=== PATIENT | female | born 1990 | race American Indian/Alaskan Native ===

== ENCOUNTER 2016-11-29 05:58 | Day surgery (SDC) | payer MEDICAID ==
[2016-11-29] MEDS ORDERED: NACL BACTERIOSTATIC INFILTRATI ONE (06:41)
[2016-11-29] MEDS ORDERED: NACL 0.9% 1000 ML 1,000 ML ONE (07:00)
[2016-11-29] MEDS ORDERED: ANCEF/STERILE WATER 2 GM/20 ML IV NR (07:10)
[2016-11-29] MEDS ORDERED: HEPARIN 10,000 UNITS/10 ML ONE (07:18)
[2016-11-29] MEDS ORDERED: MARCAINE 0.25% INFILTRATI ONE (07:18)
[2016-11-29] MEDS ORDERED: XYLOCAINE 1% 20 mL ONE (07:19)
[2016-11-29] MEDS ORDERED: NACL 0.9% 100 ML ONE (07:20)
[2016-11-29] MEDS ORDERED: VERSED ONE (07:28)
[2016-11-29] MEDS ORDERED: XYLOCAINE 1% 20 mL INFILTRATI ONE ×2 (07:30)
[2016-11-29] MEDS ORDERED: HEPARIN 10,000 UNITS/10 ML IV ONE (07:30)
[2016-11-29] MEDS ORDERED: NACL 0.9% IR ONE (07:30)
[2016-11-29] MEDS ORDERED: NACL 0.9% IV ONE (07:30)
[2016-11-29] MEDS ORDERED: DIPRIVAN 10 MG/ML IV ONE ×2 (07:35→07:44)
[2016-11-29] MEDS ORDERED: SUBLIMAZE ONE (07:35)
[2016-11-29] MEDS ORDERED: XYLOCAINE MPF 2% ONE (07:36)
[2016-11-29] MEDS ORDERED: NACL 0.9% 1000 ML 1,000 ML IV SCH (08:00)
[2016-11-29] MEDS ORDERED: ZOFRAN ONE (08:15)
--- NOTE | 2016-11-29 09:05 | Fluoroscopy Report ---
Portable chest: Line placement. A right subclavian port has been introduced with the tip overlying the superior third of the SVC. The mediastinal contour is unremarkable. The lungs are clear and fully expanded. No prior exam for comparison. Impression: No complication identified.
--- NOTE | 2016-11-29 09:23 | Short Stay Summary ---
Short Stay Documentation Date of service: 11/29/16 - History H&P: obtained from office - Allergies and Medications Current Medications: Allergies No Known Allergies Allergy (Verified 11/24/16 14:34) Home Medications Medication Instructions Recorded Confirmed Last Taken Type HYDROcodone/APAP 5-325 [[place] 1 each PO Q6HR PRN #30 tablet 11/29/16 Unknown Rx 5/325] Active Medications Cefazolin Sodium (Ancef/Sterile Water 2 Gm/20 Ml) 2 gm IV PREOP NR Stop: 11/29/16 23:59 Sodium Chloride (Nacl 0.9% 1000 Ml) 1,000 mls @ 75 mls/hr IV DIRECT CHARLETTE - Brief post op/procedure progress note Date of procedure: 11/29/16 Pre-op diagnosis: 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 Post-op diagnosis: same Procedure: Right port placement under fluorosocopy guidance Anesthesia: MAC Findings: Right port placement in good condition Surgeon: JEREMY LASSITER Kiln Packer: LACI MCQUEEN Estimated blood loss: minimal Pathology: none Condition: stable - Disposition Condition at discharge: Good Disposition: DC-01 TO HOME OR SELFCARE Short Stay Discharge Plan Activity: other (no heavy lifting) Diet: regular Wound: other (keep incision clean and dry and may shower in 24 hours; no baths, pools or lakes) Follow up with: JEREMY LASSITER MD [Staff Physician] - 7 Days Forms: Outpatient Surgery DC Inst. Prescriptions: HYDROcodone/APAP 5-325 [[place] 5/325] 1 each PO Q6HR PRN #30 tablet PRN Reason: Pain
--- NOTE | 2016-11-29 09:28 | Anesthesia Consultation ---
Anesthesia Consult and Med Hx Date of service: 11/29/16 - Airway Anesthetic Teeth Evaluation: Good ROM Head & Neck: Adequate Mental/Hyoid Distance: Adequate Mallampati Class: Class I Intubation Access Assessment: Good - Pulmonary Exam CTA: Yes - Cardiac Exam Cardiac Exam: RRR - Pre-Operative Health Status ASA Pre-Surgery Classification: ASA2 Proposed Anesthetic Plan: General - Cardiovascular System Hx Heart Murmur: Yes (as a child) - Central Nervous System Hx Psychiatric Problems: No - Other Systems Hx Alcohol Use: No Hx Substance Use: No Hx Cancer: Yes
--- NOTE | 2016-11-29 09:28 | Operative Report ---
Operative Report Operative Report: Date of Service: November 29, 2016 Preoperative diagnosis: 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s in need of central venous access Postoperative diagnosis: Same Procedure: Right port placement under fluoroscopy guidance Surgeon: Janie Freeman M.D. Asst.: Dr. Avendaño Anesthesia: Local Mac Findings: Right port placement in good position with placement confirmed under fluoroscopy guidance Complications: None Estimated blood loss: Minimal Disposition: PACU in good condition Indications for operative procedure: This is a 67-year-old lady with multicentric left breast cancer of he upper outer and upper inner quadrants. Recommendations are to proceed with neoadjuvant chemotherapy. Patient in need of central venous access to start chemotherapy. Procedure in detail: The patient was taken to the operating room and was laid supine. Local Mac anesthesia was administered. Bilateral neck and chest were prepped and draped in the normal sterile operative fashion. Timeout was performed. Sternal notch including right pectoral groove was identified. The area for central venous access was anesthetized with 1% lidocaine. The right sublcavian vein was accessed with the syringe and needle attached and good backflow of blood was noted. Wire was introduced through the needle. Placement of wire was confirmed under fluoroscopy guidance. A skin incision was then made at wire insertion site with a 15 blade knife after the skin was appropriately anesthetized. Bovie cautery was used to create the pocket for port placement. Dilator and sheath were then threaded through the wire in Seldinger technique. The wire and dilator were then removed. The catheter was then inserted through the sheath without incident. The catheter was tested with good backflow of blood and placement confirmed under flouroscopy. The sheath was then peeled back. The catheter was cut to size. The catheter was then attached to the port. The port was placed in the appropriate pocket that was created. The port was tested with good backflow of blood noted. Fluoroscopy was performed with port in good placement and no concerns for a pneumothorax. The port was sutured into place. The port was flushed with heparin. The skin incision was then approximated and closed using interrupted 3-0 Vicryl and then closed using a running 4-0 Monocryl and skin affix. Upright chest x-ray performed in operating room with port in good placement and no signs of pneumothorax. She tolerated surgery very well and was awakened from anesthesia and transported to PACU in good condition.
--- NOTE | 2016-11-29 09:28 | Anesthesia Day of Surgery ---
Anesthesia Day of Surgery - Day of Surgery Patient Examined: Yes Patient H&P Reviewed: Yes Patient is NPO: Yes
--- NOTE | 2016-11-29 09:29 | Post Anesthesia Evaluation ---
- Post Anesthesia Evaluation Patient Participated: Yes Airway Patent: Yes Stable Respiratory Function: Yes Temp > 96.8F: Yes Pain Manageable: Yes Adequeate Hydration: Yes Anesthesia Complications: No
[2016-11-29 11:30] VITALS: BP 124/71
== END 2016-11-29 10:25 | disposition home or self-care (01) ==
LOC: OR 05:58
PROVIDERS: ATTEND Surgery
DX: C50.212 Malignant neoplasm of upper-inner quadrant of left female breast (principal); C50.412 Malignant neoplasm of upper-outer quadrant of left female breast; Z80.3 Family history of malignant neoplasm of breast
CPT/HCPCS: 36556; 77001; 81025; C1788; J0690; J1644; J2250; J2405; J2704; J3010; J7030

== ENCOUNTER 2017-01-01 09:15 | Outpatient (CLI) | payer MEDICAID ==
[2017-01-01 10:14] LABS: Blood Urea Nitrogen 14 mg/dL (7-17)
[2017-01-01] MEDS ORDERED: NACL ONE (10:45)
--- NOTE | 2017-01-01 12:15 | Cat Scan Report ---
CT chest, abdomen, and pelvis with contrast: Breast cancer sided not indicated. Following IV and oral administration of contrast transverse images are obtained from the thoracic inlet to the ischium with coronal and sagittal 2-D reformatted images. There is a right port. The thyroid gland is unremarkable. The breasts are symmetric with no lesion identified. There is no obvious axillary adenopathy. No jenn and no mediastinal adenopathy identified. The central airways are patent. No pulmonary nodules, infiltrates, or pleural change is identified. The abdominal and retroperitoneal organs appear normal. No periaortic or mesenteric adenopathy noted. The opacified small bowel and non-opacified colon appear generally unremarkable. The appendix is not identified at present but no inflammatory changes noted. No free fluid. Images of the pelvis demonstrate the reproductive organs with a 2.9 cm right ovarian cyst. No bone lesions identified. Impressions: No evidence of metastatic disease.
--- NOTE | 2017-01-01 15:41 | Nuclear Medicine Report ---
BONE SCAN: Breast cancer. After injection of isotope, gamma camera imaging of the bony system was done. There is a normal uptake of isotope throughout the bony structures without areas of significantly increased or decreased uptake. Normal uptake in the urinary system is seen. IMPRESSION: Normal bone scan.
== END 2017-01-01 09:16 | disposition home or self-care (01) ==
LOC: NM 09:15
PROVIDERS: ATTEND Internal Medicine Hematology & Oncology
DX: C50.212 Malignant neoplasm of upper-inner quadrant of left female breast (principal); N83.201 Unspecified ovarian cyst, right side
CPT/HCPCS: 36415; 71260; 74177; 78306; 82565; 84520; A9503; Q9967

== ENCOUNTER 2017-03-20 09:22 | Outpatient (CLI) | payer MEDICAID ==
--- NOTE | 2017-03-20 16:50 | Mammography Report ---
LEFT DIGITAL DIAGNOSTIC MAMMOGRAM with CAD: 03/20/17 09:22:00 CLINICAL: Known left breast cancer near completion of chemotherapy. COMPARISON:10/31/16 FINDINGS: The breast is extremely dense, which limits the sensitivity of mammography. Malignant upper inner calcifications are not significantly changed compared to prior exam.However, an ill-defined inner mass is no longer identified at a biopsy clip. IMPRESSION: At least a partial response to chemotherapy. BI-RADS CATEGORY: 6--Known Cancer ACR BI-RADS MAMMOGRAPHIC CODES: 0 = Needs additional imaging evaluation; 1 = Negative; 2 = Benign; 3 = Probably benign; 4 = Suspicious; 5 = Malignant; 6 = Known biopsy-proven malignancy COMMENT: 1. Dense breast tissue, i.e., adenosis, fibrocystic changes, etc., may obscure an underlying neoplasm. 2. Approximately 10% of cancers are not detected with mammography. 3. A negative mammography report should not delay biopsy if a clinically suspicious mass is present. COMMENT: Patient follow-up letters are generated by our [employer] application.
== END 2017-03-20 09:23 | disposition home or self-care (01) ==
LOC: SPVIMAG 09:22
PROVIDERS: ATTEND Surgery
DX: C50.912 Malignant neoplasm of unspecified site of left female breast (principal)

== ENCOUNTER 2017-04-25 05:54 | Observation (INO) | payer MEDICAID ==
--- NOTE | 2017-04-24 12:27 | Anesthesia Consultation ---
Anesthesia Consult and Med Hx Date of service: 04/24/17 - Airway Anesthetic Teeth Evaluation: Good ROM Head & Neck: Adequate Mental/Hyoid Distance: Adequate Mallampati Class: Class I Intubation Access Assessment: Possibly Difficult (Pt has hx of subglottic stenosis with previous cricoid split. Hoarse from surgery. Denies GERD. Will be safe for GA with LMA.) - Pulmonary Exam CTA: Yes - Cardiac Exam Cardiac Exam: RRR - Pre-Operative Health Status ASA Pre-Surgery Classification: ASA2 Proposed Anesthetic Plan: General - Cardiovascular System Hx Heart Murmur: Yes (as a child) - Other Systems Hx Cancer: Yes (Breast Cancer)
[2017-04-25] MEDS ORDERED: NACL BACTERIOSTATIC INFILTRATI ONE (06:46)
[2017-04-25] MEDS ORDERED: PEPCID IV NR (07:00)
[2017-04-25] MEDS ORDERED: LACTATED RINGERS 1,000 ML IV SCH ×2 (07:00→12:00)
[2017-04-25] MEDS ORDERED: VERSED IV NR (07:00)
[2017-04-25] MEDS ORDERED: SUBLIMAZE IV ONE (07:15)
[2017-04-25] MEDS ORDERED: XYLOCAINE 1% 20 mL INFILTRATI NR (07:15)
[2017-04-25] MEDS ORDERED: MARCAINE 0.5% 30 ML INFILTRATI ONE (07:29)
[2017-04-25] MEDS ORDERED: DIPRIVAN 10 MG/ML IV ONE (07:31)
[2017-04-25] MEDS ORDERED: SUBLIMAZE ONE (07:34)
[2017-04-25] MEDS ORDERED: XYLOCAINE MPF 2% ONE (07:38)
[2017-04-25] MEDS ORDERED: ZEMURON IV ONE (07:38)
[2017-04-25] MEDS ORDERED: DILAUDID ONE (07:47)
[2017-04-25] MEDS ORDERED: XYLOCAINE 2% INFILTRATI ONE (07:58)
[2017-04-25] MEDS ORDERED: DECADRON IV NR (08:00)
[2017-04-25] MEDS ORDERED: SUBLIMAZE IV NR (08:00)
[2017-04-25] MEDS ORDERED: MARCAINE 0.5% INFILTRATI NR (08:00)
[2017-04-25] MEDS ORDERED: NEURONTIN PO NR (08:00)
[2017-04-25] MEDS ORDERED: XYLOCAINE 1% MPF 5 mL ONE (08:01)
[2017-04-25] MEDS ORDERED: MARCAINE 0.25% INFILTRATI ONE (08:01)
--- NOTE | 2017-04-25 08:22 | Short Stay Summary ---
Short Stay Documentation Date of service: 04/25/17 - History H&P: obtained from office - Allergies and Medications Current Medications: Allergies No Known Allergies Allergy (Verified 04/24/17 12:18) Home Medications Medication Instructions Recorded Confirmed Last Taken Type HYDROcodone/APAP 5-325 [[employer] 1 each PO Q6HR PRN #30 tablet 11/29/16 04/24/17 Unknown Rx 5/325] Active Medications Bupivacaine HCl (Marcaine 0.5%) 40 ml INFILTRATI PREOP NR Stop: 04/25/17 12:00 Celecoxib (Celebrex) 200 mg PO PREOP NR Stop: 04/25/17 12:00 Dexamethasone (Decadron) 8 mg IV PREOP NR Stop: 04/25/17 12:00 Famotidine (Pepcid) 20 mg IV PREOP NR Stop: 04/25/17 23:59 Gabapentin (Neurontin) 600 mg PO PREOP NR Stop: 04/25/17 12:00 Lactated Ringer's (Lactated Ringers) 1,000 mls @ 100 mls/hr IV DIRECT CHARLETTE Lidocaine (Xylocaine 1% 20 Ml) 10 ml INFILTRATI PREOP NR Stop: 04/25/17 12:00 Midazolam HCl (Versed) 2 mg IV PREOP NR Stop: 04/25/17 23:59 - Brief post op/procedure progress note Date of procedure: 04/25/17 Pre-op diagnosis: Left breast cancer of the upper inner quadrant Post-op diagnosis: same Procedure: Right total mastectomy and left total mastectomy with SLNB Anesthesia: GETA Findings: Right mastectomy; left total mastectomy with SLNBx2 and frozen section negative for malignancy; radiograph specimen with left breast clip present Surgeon: JEREMY LASSITER Jewel Setter: LACI MCQUEEN Estimated blood loss: minimal Pathology: list (bilateral mastectomy; left SLNS) Specimen disposition: to lab Condition: stable - Disposition Condition at discharge: Good Disposition: DC/TX-02 SHRT-TRM GEN HOSP IP Short Stay Discharge Plan Activity: other (no heavy lifting) Diet: regular Wound: other (may shower in 48 hours; no baths, pools or lakes) Follow up with: ELIJAH STUBBS MD [Primary Care Provider] - 7 Days JEREMY LASSITER MD [Staff Physician] - 7 Days
--- NOTE | 2017-04-25 08:26 | Operative Report ---
Operative Report Operative Report: Date of Service: April 25, 2017 Preoperative diagnosis: Multicentric left breast cancer of the upper inner quadrant and overlapping areas, BRCA positive gene mutation Postoperative diagnosis: Same Procedure: Right total mastectomy and left total mastectomy with sentinel lymph node biopsy Surgeon: Janie Freeman M.D. Asst.: Ana Pierce MD Anesthesia: Gen. Findings: Left breast clip present within left total mastectomy radiograph specimen; x2 sentinel lymph nodes identified and negative for malignancy on frozen section of pathology Complications: None Drains: 2 19 Fr Estimated blood loss: Minimal Disposition: PACU in good condition Indications for operative procedure: This is a 27-year-old lady with stage I multicentric left breast cancer of the upper inner quadrant and overlapping areas. Recommendations were to proceed with a bilateral total mastectomy and left axillary lymph node staging given positive BRCA gene mutation and multicentric invasive left breast cancer. She completed neoadjuvant chemotherapy. Patient declined plastic reconstructive surgery. Procedure in detail: Anesthesia placed a bilateral pectoral muscle block prior to going to the operating room. The patient was taken to the operating room and was placed supine. Gen. anesthesia was administered. The left nipple was injected with radioisotope. Bilateral breast were prepped and draped in the normal postoperative fashion. Timeout was performed. Typical mastectomy incision markings were made with left mastectomy marking to include known breast cancer at the 10:00 position-was palpable. Attention was taken towards the right breast first. A skin incision was made with a 10 blade knife and dissection taken down to the subcutaneous tissues. First began raising of the superior flap to the level of the clavicle superiorly and posteriorly to the pectoralis muscle. Followed by raising of the medial flap to the level of the sternum and posteriorly to the pectoralis muscle. Followed by raising of the lateral flap to the level of the latissimus dorsi muscle and taken down posteriorly. Followed by raising of the inferior flap to the level of the inframammary fold taken posterior to the pectoralis muscle. The mastectomy/breast was removed from the pectoralis muscle without incident. The specimen was appropriately marked and sent to pathology. Hemostasis was obtained with the bovie cautery. A 19 [place] EMILY drain was placed. The subcutaneous tissues were approximated and closed using interrupted 3-0 Vicryl. The skin was then closed using a running 4-0 Monocryl followed by skin affix. Attention was taken towards the left breast. A gamma probe was inserted into the axilla to identify the sentinel lymph node location. A skin incision was made with a 10 blade knife and dissection taken down to the subcutaneous tissues. First began raising of the superior flap to the level of the clavicle superiorly and posteriorly to the pectoralis muscle. Followed by raising of the medial flap to the level of the sternum and posteriorly to the pectoralis muscle. Followed by raising of the lateral flap to the level of the latissimus dorsi muscle and taken down posteriorly. The gamma probe was inserted into the axilla and 2 sentinel lymph nodes were identified, all remaining counts were less than 10% of the highest SLN. Lymph nodes were sent to pathology with findings negative for malignancy noted on frozen section. Then proceeded with raising of the inferior flap to the level of the inframammary fold taken posterior to the pectoralis muscle. The mastectomy/breast was removed from the pectoralis muscle without incident. The specimen was appropriately marked and sent to radiology with findings of 1 breast clip present and sent to pathology. Hemostasis was obtained with the bovie cautery. A 19 [place] EMILY drain was placed. The subcutaneous tissues were approximated and closed using interrupted 3-0 Vicryl. The skin was then closed using a running 4-0 Monocryl followed by skin affix. She was awaken from anesthesia without any complications and transported to PACU in good condition.
[2017-04-25] MEDS ORDERED: ANCEF/STERILE WATER 2 GM/20 ML IV NR (08:40)
[2017-04-25] MEDS ORDERED: ePHEDrine SULFATE ONE (08:46)
[2017-04-25] MEDS ORDERED: ZOFRAN ONE (09:25)
[2017-04-25] MEDS ORDERED: DECADRON ONE (09:25)
[2017-04-25] MEDS ORDERED: WATER FOR IRRIG STERILE IR ONE (09:46)
--- NOTE | 2017-04-25 11:12 | Post Anesthesia Evaluation ---
- Post Anesthesia Evaluation Patient Participated: Yes Airway Patent: Yes Stable Respiratory Function: Yes Nausea/Vomiting: No Temp > 96.8F: Yes Pain Manageable: Yes Adequeate Hydration: Yes Anesthesia Complications: No
[2017-04-25] MEDS ORDERED: SODIUM CHLORIDE FLUSH SYRINGE 10 ML IV PRN (11:15)
[2017-04-25] MEDS ORDERED: PERCOCET 5/325 PO PRN (11:15)
[2017-04-25] MEDS ORDERED: ZOFRAN IV PRN (11:15)
[2017-04-25] MEDS ORDERED: REGLAN PO PRN (11:15)
[2017-04-25] MEDS ORDERED: BENADRYL PO PRN (11:15)
[2017-04-25] MEDS ORDERED: TYLENOL PO PRN (11:15)
[2017-04-25] MEDS ORDERED: MORPHINE IV PRN ×2 (11:16→11:59)
[2017-04-25] MEDS ORDERED: MORPHINE ONE (11:41)
--- NOTE | 2017-04-25 15:06 | Mammography Report ---
SPECIMEN RADIOGRAPH LEFT BREAST: 04/25/17 05:54:00 CLINICAL: Left mastectomy specimen FINDINGS: Malignant calcifications are identified within the specimen.
[2017-04-25] MEDS ORDERED: COLACE PO SCH (22:00)
--- NOTE | 2017-04-26 07:52 | Progress Note ---
Assessment and Plan This is a 27 year old lady with Stage I left breast cancer POD#1 uli mastectomy with left SLNB. 1. No acute events overnight. Pain well controlled. 2. Uli chest incisions healing well. 3. EMILY drain education. 4. OOB to hallway. 4. D/C planning for today. Subjective Date of service: 04/26/17 Principal diagnosis: Multicentric left breast cancer of the upper inner quadrant Interval history: This is a 27 year old lady POD#1 bilateral tot mastectomy and left SLNB Objective - Constitutional Vitals: Vital Signs - 12hr 04/25/18 04/26/17 04/26/17 20:10 00:20 05:00 Temperature 97.9 F 97.9 F 98.5 F Pulse Rate 82 85 85 Respiratory 18 18 18 Rate Blood Pressure 114/65 115/63 116/71 [Right] O2 Sat by Pulse 100 99 100 Oximetry General appearance: Present: no acute distress - EENT Eyes: PERRL, EOM intact ENT: hearing intact, clear oral mucosa, dentition normal Ears: bilateral: normal - Neck Neck: supple, normal ROM - Respiratory Respiratory effort: normal Respiratory: bilateral: CTA - Breasts Breasts: other (uli chest inc c/d/i; skin well perfused; EMILY drains to bulb suction; no hematoma) - Cardiovascular Rhythm: regular Extremities: no ischemia, pulses intact, pulses symmetrical, No edema, normal temperature, normal color, Full ROM - Gastrointestinal General gastrointestinal: Present: soft, non-tender, non-distended Rectal Exam: deferred - Genitourinary Female genitourinary: deferred - Integumentary Integumentary: clear, warm, dry - Musculoskeletal Musculoskeletal: strength equal bilaterally - Neurologic Neurologic: CNII-XII intact, moves all extremities - Psychiatric Psychiatric: appropriate mood/affect, intact judgment & insight, memory intact, cooperative
[2017-04-26 10:46] VITALS: BP 117/73
== END 2017-04-26 11:45 | disposition home or self-care (01) ==
LOC: OR 05:54 → OB 11:15
PROVIDERS: ADMIT Surgery; ATTEND Surgery
DX: C50.212 Malignant neoplasm of upper-inner quadrant of left female breast (principal); C50.812 Malignant neoplasm of overlapping sites of left female breast; Z80.3 Family history of malignant neoplasm of breast
CPT/HCPCS: 19303; 38525; 64450; 76098; 78800; 81025; 88307; 88309; 88331; 88333; 88342; 96374; 96375; A9541; G0378; J1100; J1170; J2250; J2270; J2405; J2704; J3010; J7120